=== PATIENT | female | born 1970 | race Caucasian/White ===

== ENCOUNTER → 2022-03-07 | Outpatient (CLI) | payer OTHER ==
[2022-03-07 13:27] VITALS: BP 122/81; PULSE 78; RESP 17; TEMP 98.5
--- NOTE | 2022-03-07 14:22 | P.HPOB ---
History of Present Illness H&P Date: 03/07/22 Chief Complaint: The patient is here for her routine gynecologic exam. This is a 51-year-old with an LMP of 02/06/2022. She is here to establish with this office. Her is status post vasectomy. It has been about 20 years since her last pelvic exam. Her menstrual periods were regular every month up until about 1 year ago when they started becoming every 1-2 months. She denies hot flashes. Review of Systems The patient has lost 18 pounds over the last year. She has been recently following a low carbohydrate diet and attributes the weight loss to this. She denies respiratory, cardiac, or G.I. problems. Past Medical History Past Medical History: Diabetes Mellitus, Hyperlipidemia, Hypertension, Osteoarthritis (OA) Additional Past Medical History / Comment(s): TYPE 2 DIABETES 2021. Arthritis of the lower back. 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 History of Any Multi-Drug Resistant Organisms: None Reported Past Surgical History: Breast Surgery, Section Additional Past Surgical History / Comment(s): BREAST REDUCTION 2006, 2000. Past Anesthesia/Blood Transfusion Reactions: No Reported Reaction Past Psychological History: Anxiety (She denies any current depression.) Smoking Status: Former smoker Past Alcohol Use History: Rare (2 per year) Additional Past Alcohol Use History / Comment(s): She quit smoking in 2015. Past Drug Use History: Marijuana (She smokes marijuana about every other day.) Additional History: She has been since 2001. 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 - Past Family History Father Family Medical History: Diabetes Mellitus Daughter(s) Family Medical History: Diabetes Mellitus Mother Additional Family Medical History / Comment(s): of a drug overdose. Medications and Allergies Home Medications and Allergies Comment(s): She was recently started on Trulicity injections weekly. Home Medications Medication Instructions Recorded Confirmed Type Celecoxib [CeleBREX] 200 mg PO DAILY 03/07/22 03/07/22 History Losartan Potassium [Cozaar] 25 mg PO DAILY 03/07/22 03/07/22 History PARoxetine HCL 40 mg PO DAILY 03/07/22 03/07/22 History Rosuvastatin [Crestor] 10 mg PO DAILY 03/07/22 03/07/22 History Allergies Allergy/AdvReac Type Severity Reaction Status Date / Time No Known Allergies Allergy Unverified 03/07/22 13:10 Exam Vital Signs Temp Pulse Resp BP Pulse Ox 03/07/22 13:23 98.5 F 78 17 122/81 99 Intake and Output 03/06/22 03/07/22 03/07/22 22:59 06:59 14:59 Other: Weight 107.048 kg Height 5 feet 8 inches, weight 236 pounds, BMI 35.9. This is a well-developed well-nourished heavyset white female who is alert and oriented times 3 in no acute distress. HEENT: Within normal limits. NECK: Supple without mass or thyromegaly. CHEST AND LUNGS: Clear to auscultation. HEART: Regular rate and rhythm. BREASTS: Are without mass or discharge. AXILLARY EXAM: Negative for adenopathy. BACK: Negative for CVA tenderness. ABDOMEN: Soft, obese nontender, without palpable masses. PELVIC EXAM: Normal external genitalia. Cervix and vagina appear normal. There is a small amount of menstrual type blood with no other unusual discharge. There is no evidence of prolapse. The uterus is midposition, nongravid size and nontender. There are no palpable adnexal masses or tenderness. RECTAL EXAM: negative for mass or tenderness and is negative for occult blood. EXTREMITIES: Nontender. IMPRESSION: 1. 51-year-old perimenopausal female whose is status post vasectomy, with recent oligomenorrhea and normal gynecologic exam. PLAN: 1. Pap smear cotest was performed. This is her first Pap smear in more than 20 years. 2. Self breast awareness was discussed with the patient. We have also discussed symptoms associated with inflammatory breast cancer. 3. Screening mammogram will be done today. 4. The patient will keep a menstrual calendar and call if menstrual problems. 5. Osteoporosis prevention was discussed. I have stressed the importance of adequate calcium, vitamin D and regular exercise. Recommended amounts of calcium and vitamin D were also discussed. 6. She has completed her Covid vaccination series and did receive 2 boosters. 7. She was advised to return in one year for her annual well woman exam.
--- NOTE | 2022-03-08 10:36 | MM ---
Reason for Exam: Screening (asymptomatic). Baseline mammogram. Patient History: Menarche at age 14. First Full-Term at age 31. 08/06/2006, Bilateral Reduction. Last menstrual period: 02/06/2022 Risk Values: Estrella 5 year model risk: 1.0%. NCI Lifetime model risk: 10.0%. Prior Study Comparison: Patient's first Mammogram. Tissue Density: There are scattered fibroglandular densities. Findings: Analyzed By CAD. There is some distortion within the posterior right breast may be related to the patient's prior breast reduction. No suspicious groups of microcalcifications, spiculated or lobular masses, architectural distortion or other secondary signs of malignancy are mammographically apparent. Overall Assessment: Probably benign, BI-RAD 3 Management: Diagnostic Mammogram of the right breast in 6 months. A negative mammogram report should not preclude additional follow up of suspicious palpable abnormalities. Patient should continue monthly self breast exam. A clinical breast exam by your physician is recommended on an annual basis and results should be correlated with mammographic findings. Electronically signed and approved by: Lopez Lagos D.O. Radiologis
== END | disposition home or self-care (01) ==
LOC: WWCWWP 12:58
PROVIDERS: ATTEND Obstetrics & Gynecology
DX: Z12.31 Encounter for screening mammogram for malignant neoplasm of breast (principal); Z12.4 Encounter for screening for malignant neoplasm of cervix
CPT/HCPCS: 77067

== ENCOUNTER → 2023-04-16 | Outpatient (CLI) | payer OTHER ==
--- NOTE | 2023-04-17 22:36 | MM ---
Reason for Exam: Screening (asymptomatic). Last mammogram was performed 1 year(s) and 1 month(s) ago. Patient History: Menarche at age 14. First Full-Term at age 31. Postmenopausal. 08/06/2006, Bilateral Reduction. Risk Values: Estrella 5 year model risk: 1.1%. NCI Lifetime model risk: 9.9%. Prior Study Comparison: 03/07/2022 Bilateral MG screening mammo w CAD, [facility]. 09/22/2022 Right MG diagnostic mammo RT w CAD, [facility]. Tissue Density: There are scattered fibroglandular densities. Findings: Analyzed By CAD. There is no suspicious group of microcalcifications or new suspicious mass in either breast. Overall Assessment: Negative, BI-RAD 1 Management: Screening Mammogram of both breasts in 1 year. . Patient should continue monthly self-breast exams. A clinical breast exam by your physician is recommended on an annual basis. This exam should not preclude additional follow-up of suspicious palpable abnormalities. Note on Estrella scores and lifetime risk: 1. A Estrella score greater than 3% is considered moderate risk. If this is the case, consider specialist referral to assess eligibility for a risk reducing agent. 2. If overall lifetime risk for the development of breast cancer is 20% or higher, the patient may qualify for future screening with alternating mammogram and breast MRI. Electronically signed and approved by: Mauricio Oviedo M.D. Radiologist
== END | disposition home or self-care (01) ==
LOC: RADMAMWWP 13:21
PROVIDERS: ATTEND Family Medicine
DX: Z12.31 Encounter for screening mammogram for malignant neoplasm of breast (principal); Z78.0 Asymptomatic menopausal state
CPT/HCPCS: 77063; 77067